=== PATIENT | female | born 1960 | race Caucasian/White ===

== ENCOUNTER 2020-06-16 09:44 | Inpatient (IN) | payer OTHER ==
[2020-06-16 09:59] VITALS: BMI 34.2
[2020-06-16] MEDS ORDERED: ACETAMINOPHEN 500 MG TABLET (FP) PO ONE (10:27)
[2020-06-16] MEDS ORDERED: ACETAMINOPHEN 325 MG TABLET (FP) ONE (10:30)
[2020-06-16 10:55] LABS: BASO % 0.3 % (0-2.0); EOS % 1.1 % (0-4.5); HEMATOCRIT 42.2 % (32.4-45.2); LYMPH % 26.1 % (8-40); MCH 28.4 pg (25.7-33.7); MCHC 33.3 g/dl (32.0-36.0); MEAN CELL VOLUME 85.3 fl (80-96); MEAN PLT VOLUME 7.5 fl (7.5-11.1); MONO % 8.2 % (3.8-10.2); NEUT % 64.3 % (42.8-82.8); PLATELET COUNT 325 K/MM3 (134-434); RBC 4.94 M/mm3 (3.60-5.2); RDW 13.5 % (11.6-15.6); WHITE BLOOD COUNT 4.9 K/mm3 (4.0-10.0)
[2020-06-16 11:02] LABS: INR 1.03 (0.83-1.09); PROTHROMBIN TIME (PATIENT) 12.6 SEC (9.7-13.0)
[2020-06-16 11:04] LABS: ACTIVATED PTT 30.9 SECONDS (25.2-36.5)
[2020-06-16 11:10] LABS: POTASSIUM 4.2 mmol/L (3.5-5.1)
[2020-06-16 11:12] LABS: ALBUMIN 3.5 g/dl (3.4-5.0); BLOOD UREA NITROGEN 21.1 mg/dL (7-18); CALCIUM 9.1 mg/dL (8.5-10.1)
[2020-06-16 11:15] LABS: CREATININE 0.7 mg/dL (0.55-1.3)
[2020-06-16 11:17] LABS: BILIRUBIN,TOTAL 0.5 mg/dL (0.2-1); TOT PROT 7.1 g/dl (6.4-8.2)
[2020-06-16 11:20] LABS: N-TERMINAL BNP 68.6 pg/ml (5-125)
[2020-06-16] MEDS ORDERED: FAMOTIDINE 10 MG TABLET PO ONE (14:32)
[2020-06-16] MEDS ORDERED: MAG HYDROX/AL HYDROX/SIMETH 30 ML UNIT-DOSE CUP PO ONE (14:32)
[2020-06-16] MEDS ORDERED: metroNIDAZOLE 250 MG TABLET PO ONE (14:36)
[2020-06-16] MEDS ORDERED: CIPROFLOXACIN 500 MG TABLET (RESTRICTED TO ID) PO ONE (14:36)
[2020-06-16] MEDS ORDERED: MAG HYDROX/AL HYDROX/SIMETH 30 ML UNIT-DOSE CUP ONE (15:09)
[2020-06-16] MEDS ORDERED: metroNIDAZOLE 250 MG TABLET ONE (15:09)
[2020-06-16] MEDS ORDERED: FAMOTIDINE 10 MG TABLET ONE (15:09)
[2020-06-16] MEDS ORDERED: ACETAMINOPHEN 325 MG TABLET (FP) PO PRN (22:13)
[2020-06-16] MEDS ORDERED: SODIUM CHLORIDE 0.45% 1,000 ML IV SCH (22:15)
[2020-06-17 06:38] LABS: BASO % 0.3 % (0-2.0); EOS % 1.9 % (0-4.5); HEMATOCRIT 39.1 % (32.4-45.2); HEMOGLOBIN 13.1 GM/dL (10.7-15.3); LYMPH % 27.6 % (8-40); MCH 28.5 pg (25.7-33.7); MCHC 33.6 g/dl (32.0-36.0); MEAN PLT VOLUME 7.4 fl (7.5-11.1); NEUT % 63.2 % (42.8-82.8); PLATELET COUNT 295 K/MM3 (134-434); RDW 13.5 % (11.6-15.6); WHITE BLOOD COUNT 5.2 K/mm3 (4.0-10.0)
[2020-06-17 07:05] LABS: BLOOD UREA NITROGEN 19.5 mg/dL (7-18); CALCIUM 8.6 mg/dL (8.5-10.1)
[2020-06-17 07:07] LABS: ALBUMIN 3.3 g/dl (3.4-5.0)
[2020-06-17 07:09] LABS: CREATININE 0.7 mg/dL (0.55-1.3)
[2020-06-17 07:11] LABS: BILIRUBIN,TOTAL 0.6 mg/dL (0.2-1); TOT PROT 6.5 g/dl (6.4-8.2)
[2020-06-17] MEDS: INSULIN SLIDING SCALE (NOVOLOG) 1 VIAL SQ SCH ×4 (07:50→22:44)
[2020-06-17] MEDS ORDERED: PT OWN MED DRAWER 7, Y5N ONE (09:25)
[2020-06-17] MEDS: LOSARTAN POTASSIUM 50 MG TABLET PO SCH (09:47)
[2020-06-17] MEDS: metoPROLOL SUCCINATE 25 MG TAB.SR.24H (FP) PO SCH (09:47)
[2020-06-17] MEDS: PANTOPRAZOLE 40 MG TABLET PO SCH (09:47)
[2020-06-17] MEDS: ASPIRIN 81 MG CHEWABLE TABLETS PO SCH (09:47)
[2020-06-17] MEDS ORDERED: metoPROLOL SUCCINATE 25 MG TAB.SR.24H (FP) PO SCH (10:00)
[2020-06-17] MEDS ORDERED: LOSARTAN 50MG/HCTZ 12.5MG 1 TAB PO SCH (10:00)
[2020-06-17] MEDS: ATORVASTATIN CA 20 MG TABLET (FP) PO SCH (22:45)
[2020-06-18] MEDS: INSULIN SLIDING SCALE (NOVOLOG) 1 VIAL SQ SCH ×4 (06:22→22:16)
[2020-06-18] MEDS: ASPIRIN 81 MG CHEWABLE TABLETS PO SCH (09:53)
[2020-06-18] MEDS: metoPROLOL SUCCINATE 25 MG TAB.SR.24H (FP) PO SCH (09:53)
[2020-06-18] MEDS: PANTOPRAZOLE 40 MG TABLET PO SCH (09:53)
[2020-06-18] MEDS: LOSARTAN POTASSIUM 50 MG TABLET PO SCH (09:53)
[2020-06-18] MEDS: SIMETHICONE 80 MG TAB.CHEW (FP) PO SCH ×2 (16:59→22:16)
[2020-06-18] MEDS: ATORVASTATIN CA 20 MG TABLET (FP) PO SCH (22:16)
[2020-06-19 03:17] VITALS: TEMP 98.1
[2020-06-19] MEDS: INSULIN SLIDING SCALE (NOVOLOG) 1 VIAL SQ SCH ×2 (06:06→13:02)
[2020-06-19] MEDS: LOSARTAN POTASSIUM 50 MG TABLET PO SCH (09:40)
[2020-06-19] MEDS: metoPROLOL SUCCINATE 25 MG TAB.SR.24H (FP) PO SCH (09:40)
[2020-06-19] MEDS: SIMETHICONE 80 MG TAB.CHEW (FP) PO SCH (09:41)
[2020-06-19] MEDS: ASPIRIN 81 MG CHEWABLE TABLETS PO SCH (09:41)
[2020-06-19] MEDS: PANTOPRAZOLE 40 MG TABLET PO SCH (09:41)
[2020-06-19 11:47] VITALS: BP 116/55; PULSE 70
== END 2020-06-19 13:30 | disposition home or self-care (01) | DRG 244 ==
LOC: JER 09:44 → JERBED 15:29 → J4W 17:01
PROVIDERS: ADMIT Internal Medicine; ATTEND Internal Medicine
DX: K57.92 Diverticulitis of intestine, part unspecified, without perforation or abscess without bleeding (principal); I67.4 Hypertensive encephalopathy; E11.42 Type 2 diabetes mellitus with diabetic polyneuropathy; I65.29 Occlusion and stenosis of unspecified carotid artery; I77.1 Stricture of artery; E78.5 Hyperlipidemia, unspecified; K21.9 Gastro-esophageal reflux disease without esophagitis; E66.9 Obesity, unspecified; Z68.34 Body mass index [BMI] 34.0-34.9, adult; I16.0 Hypertensive urgency
CPT/HCPCS: 36415; 70450-TC; 70496-TC; 70498-TC; 70551-TC; 71045-TC-FY; 71260-TC; 74177-TC; 80053; 82465; 82962; 83090; 83880; 84484; 85025; 85379; 85610; 85730; 93005; 93010; 93306-TC; 99285-25; C9803; Q9967; U0003

== ENCOUNTER 2020-07-15 11:44 | Inpatient (IN) | payer OTHER ==
[2020-07-15 12:02] VITALS: BMI 38.7
[2020-07-15] MEDS ORDERED: METOCLOPRAMIDE HCL INJECTION 10 MG/2 ML VIAL IVPUSH ONE (12:59)
[2020-07-15] MEDS ORDERED: ACETAMINOPHEN 1000 MG/100 ML VIAL (NON FORMULARY) IVPB ONE (13:03)
[2020-07-15] MEDS ORDERED: FAMOTIDINE 20 MG/50 ML IVPB 20 MG/50 ML MG IVPB ONE ×2 (13:03→13:19)
[2020-07-15] MEDS ORDERED: METOCLOPRAMIDE HCL INJECTION 10 MG/2 ML VIAL ONE (13:04)
[2020-07-15] MEDS ORDERED: ACETAMINOPHEN INJECTION 100 ML IVPB ONE (13:19)
[2020-07-15 13:38] LABS: BASO % 0.3 % (0-2.0); EOS % 0.6 % (0-4.5); HEMATOCRIT 37.1 % (32.4-45.2); HEMOGLOBIN 12.7 GM/dL (10.7-15.3); LYMPH % 18.8 % (8-40); MCH 29.3 pg (25.7-33.7); MCHC 34.2 g/dl (32.0-36.0); MEAN CELL VOLUME 85.7 fl (80-96); MEAN PLT VOLUME 8.2 fl (7.5-11.1); MONO % 4.9 % (3.8-10.2); NEUT % 75.4 % (42.8-82.8); PLATELET COUNT 247 K/MM3 (134-434); RBC 4.33 M/mm3 (3.60-5.2); RDW 13.6 % (11.6-15.6); WHITE BLOOD COUNT 4.4 K/mm3 (4.0-10.0)
[2020-07-15 14:01] LABS: POTASSIUM 4.1 mmol/L (3.5-5.1)
[2020-07-15 14:03] LABS: CALCIUM 8.9 mg/dL (8.5-10.1)
[2020-07-15 14:04] LABS: ALBUMIN 3.7 g/dl (3.4-5.0); BLOOD UREA NITROGEN 17.8 mg/dL (7-18)
[2020-07-15 14:05] LABS: MAGNESIUM 1.8 mg/dL (1.8-2.4)
[2020-07-15 14:09] LABS: BILIRUBIN,TOTAL 1.1 mg/dL (0.2-1); TOT PROT 6.8 g/dl (6.4-8.2)
[2020-07-15 14:17] LABS: CREATININE 0.7 mg/dL (0.55-1.3)
[2020-07-15] MEDS ORDERED: ASPIRIN 81 MG CHEWABLE TABLETS PO ONE (14:34)
[2020-07-15] MEDS ORDERED: ASPIRIN 81 MG CHEWABLE TABLETS ONE (14:50)
[2020-07-16 06:47] LABS: RBC 4.14 M/mm3 (3.60-5.2)
[2020-07-16 06:48] LABS: BASO % 0.5 % (0-2.0); EOS % 2.2 % (0-4.5); HEMATOCRIT 35.7 % (32.4-45.2); HEMOGLOBIN 12.2 GM/dL (10.7-15.3); MCH 29.5 pg (25.7-33.7); MCHC 34.2 g/dl (32.0-36.0); MEAN CELL VOLUME 86.2 fl (80-96); MEAN PLT VOLUME 8.5 fl (7.5-11.1); MONO % 8.2 % (3.8-10.2); NEUT % 53.1 % (42.8-82.8); PLATELET COUNT 226 K/MM3 (134-434); RDW 13.6 % (11.6-15.6)
[2020-07-16] MEDS ORDERED: metFORMIN HCL 500 MG TABLET (FP) ONE ×2 (07:10→16:36)
[2020-07-16 07:11] LABS: POTASSIUM 3.8 mmol/L (3.5-5.1)
[2020-07-16] MEDS: metFORMIN HCL 500 MG TABLET (FP) PO SCH ×2 (07:18→16:44)
[2020-07-16 07:19] LABS: ALBUMIN 3.3 g/dl (3.4-5.0); CALCIUM 8.4 mg/dL (8.5-10.1)
[2020-07-16 07:20] LABS: BLOOD UREA NITROGEN 14.4 mg/dL (7-18)
[2020-07-16 07:24] LABS: BILIRUBIN,TOTAL 0.6 mg/dL (0.2-1)
[2020-07-16 07:25] LABS: CREATININE 0.6 mg/dL (0.55-1.3); TOT PROT 6.3 g/dl (6.4-8.2)
[2020-07-16] MEDS ORDERED: ENOXAPARIN NA (PORCINE) 40 MG/0.4 ML DISP.SYRIN SQ ONE (10:00)
[2020-07-16] MEDS ORDERED: metFORMIN HCL 500 MG TABLET (FP) PO SCH (10:00)
[2020-07-16] MEDS: ENOXAPARIN NA (PORCINE) 40 MG/0.4 ML DISP.SYRIN SQ SCH (10:04)
[2020-07-17 07:11] LABS: CHOLESTEROL 117 mg/dL (50-200); TRIGLYCERIDES 135 mg/dL (0-150)
[2020-07-17 07:12] LABS: LDL CHOLESTEROL (ONLY SJRH) 65 mg/dL (5-100)
[2020-07-17 07:14] LABS: HDL CHOLESTEROL 39 mg/dL (40-60)
[2020-07-17] MEDS ORDERED: metFORMIN HCL 500 MG TABLET (FP) ONE (07:56)
[2020-07-17] MEDS: metFORMIN HCL 500 MG TABLET (FP) PO SCH ×2 (07:58→17:59)
[2020-07-17] MEDS ORDERED: ENOXAPARIN NA (PORCINE) 40 MG/0.4 ML DISP.SYRIN SQ ONE (10:41)
[2020-07-17] MEDS: ENOXAPARIN NA (PORCINE) 40 MG/0.4 ML DISP.SYRIN SQ SCH (10:45)
[2020-07-17] MEDS ORDERED: ONDANSETRON 4 MG/2 ML VIAL IVPUSH ONE (17:45)
[2020-07-17] MEDS ORDERED: PANTOPRAZOLE 40 MG TABLET PO ONE (20:07)
[2020-07-18] MEDS: metFORMIN HCL 500 MG TABLET (FP) PO SCH (06:18)
[2020-07-18] MEDS: ENOXAPARIN NA (PORCINE) 40 MG/0.4 ML DISP.SYRIN SQ SCH (12:02)
[2020-07-18 15:16] VITALS: BP 123/48; PULSE 68; TEMP 98
== END 2020-07-18 16:16 | disposition home or self-care (01) | DRG 46 ==
LOC: JER 11:44 → JERBED 16:24 → J4W 07-17 16:10
PROVIDERS: ADMIT Internal Medicine; ATTEND Internal Medicine
DX: I65.02 Occlusion and stenosis of left vertebral artery (principal); I77.1 Stricture of artery; G43.909 Migraine, unspecified, not intractable, without status migrainosus; I10 Essential (primary) hypertension; E78.5 Hyperlipidemia, unspecified; E11.9 Type 2 diabetes mellitus without complications; K21.9 Gastro-esophageal reflux disease without esophagitis; R77.8 Other specified abnormalities of plasma proteins; R42 Dizziness and giddiness; E66.9 Obesity, unspecified; Z68.38 Body mass index [BMI] 38.0-38.9, adult; E11.40 Type 2 diabetes mellitus with diabetic neuropathy, unspecified
CPT/HCPCS: 36415; 71045-TC-FY; 78452-TC; 80053; 80061; 82550; 82962; 83036; 83690; 83721; 83735; 84443; 84484; 85025; 93005; 93010; 93017; 93880-TC; 99285-25; A9502; C9803; J0131; U0003

== ENCOUNTER 2020-09-13 10:58 | Emergency (ER) | payer BC ==
[2020-09-13 11:24] VITALS: BMI 30.4
[2020-09-13] MEDS ORDERED: ONDANSETRON 4 MG/2 ML VIAL IVPUSH ONE (12:19)
[2020-09-13] MEDS ORDERED: ONDANSETRON 4 MG/2 ML VIAL ONE (12:20)
[2020-09-13] MEDS ORDERED: SODIUM CHLORIDE 0.9% 500 ML INFUS.BAG IV ONE (12:24)
[2020-09-13] MEDS ORDERED: FAMOTIDINE 20 MG TABLET PO ONE (12:38)
[2020-09-13 12:39] LABS: BASO % 0.6 % (0-2.0); EOS % 0.4 % (0-4.5); HEMATOCRIT 41.1 % (32.4-45.2); LYMPH % 17.2 % (8-40); MCH 29.2 pg (25.7-33.7); MCHC 34.2 g/dl (32.0-36.0); MEAN CELL VOLUME 85.4 fl (80-96); MEAN PLT VOLUME 8.1 fl (7.5-11.1); MONO % 4.8 % (3.8-10.2); PLATELET COUNT 295 K/MM3 (134-434); RBC 4.81 M/mm3 (3.60-5.2); RDW 14.8 % (11.6-15.6); WHITE BLOOD COUNT 5.3 K/mm3 (4.0-10.0)
[2020-09-13 12:40] LABS: EPI CELLS 4 /uL (0-25.1); HYALINE CASTS 0 /uL (0-3.1); PH,URINE 7.5 (5.0-8.0); URINE APPEARANCE CLEAR; URINE BACTERIA 90 /uL (0-1359); URINE BILIRUBIN NEGATIVE (NEGATIVE); URINE COLOR YELLOW; URINE GLUCOSE (UA) NEGATIVE (NEGATIVE); URINE KETONE NEGATIVE (NEGATIVE); URINE LEUK ESTERASE NEGATIVE (NEGATIVE); URINE NITRITE NEGATIVE (NEGATIVE); URINE PROTEIN NEGATIVE (NEGATIVE); URINE RBC 23 /uL (0-23.9); URINE UROBILINOGEN 0.2 mg/dL (0.2-1.0); URINE WBC 4 /uL (0-25.8)
[2020-09-13] MEDS ORDERED: FAMOTIDINE 20 MG TABLET ONE (12:51)
[2020-09-13 13:02] LABS: POTASSIUM 4.1 mmol/L (3.5-5.1)
[2020-09-13 13:05] LABS: ALBUMIN 4.1 g/dl (3.4-5.0); BLOOD UREA NITROGEN 10.8 mg/dL (7-18); CALCIUM 9.3 mg/dL (8.5-10.1)
[2020-09-13 13:08] LABS: CREATININE 0.8 mg/dL (0.55-1.3); PHOSPHOROUS 3.3 mg/dL (2.5-4.9)
[2020-09-13 13:10] LABS: BILIRUBIN,TOTAL 0.9 mg/dL (0.2-1); TOT PROT 7.7 g/dl (6.4-8.2)
[2020-09-13 14:28] VITALS: BP 150/75; PULSE 67; TEMP 98.8
== END 2020-09-13 16:45 | disposition home or self-care (01) ==
LOC: JER 10:58
PROC: 3E033NZ Introduction of Analgesics, Hypnotics, Sedatives into Peripheral Vein, Percutaneous Approach (ICD-10-PCS; principal; 2020-09-13)
DX: R10.13 Epigastric pain (principal); R11.2 Nausea with vomiting, unspecified
CPT/HCPCS: 36415; 71046-TC-FY; 74177-TC; 80053; 81003; 82550; 83605; 83690; 83735; 84100; 84484; 85025; 87086; 93005; 93010; 99285-25

== ENCOUNTER 2020-11-17 09:54 | Emergency (ER) | payer BC, OTHER ==
[2020-11-17 10:05] VITALS: BP 149/95; PULSE 84; TEMP 98.8; BMI 26.6
[2020-11-17] MEDS ORDERED: ACETAMINOPHEN 1000 MG/100 ML VIAL (NON FORMULARY) IVPB ONE (10:50)
[2020-11-17 11:19] LABS: BASO % 0.5 % (0-2.0); EOS % 2.7 % (0-4.5); HEMATOCRIT 36.4 % (32.4-45.2); HEMOGLOBIN 12.4 GM/dL (10.7-15.3); LYMPH % 33.1 % (8-40); MCH 29.7 pg (25.7-33.7); MEAN CELL VOLUME 87.2 fl (80-96); MEAN PLT VOLUME 7.6 fl (7.5-11.1); MONO % 7.6 % (3.8-10.2); NEUT % 56.1 % (42.8-82.8); PLATELET COUNT 299 K/MM3 (134-434); RBC 4.17 M/mm3 (3.60-5.2); RDW 14.5 % (11.6-15.6); WHITE BLOOD COUNT 4.7 K/mm3 (4.0-10.0)
[2020-11-17 11:51] LABS: CALCIUM 8.7 mg/dL (8.5-10.1)
[2020-11-17 11:52] LABS: ALBUMIN 3.4 g/dl (3.4-5.0); BLOOD UREA NITROGEN 17.6 mg/dL (7-18)
[2020-11-17 11:55] LABS: CREATININE 0.6 mg/dL (0.55-1.3)
[2020-11-17 11:57] LABS: BILIRUBIN,TOTAL 0.5 mg/dL (0.2-1); TOT PROT 6.8 g/dl (6.4-8.2)
[2020-11-17] MEDS ORDERED: AMOX TR/POT CLAV 875MG/125MG TABLETS (FP) PO ONE (15:36)
[2020-11-17] MEDS ORDERED: DEXAMETHASONE LIQUID 0.5 MG/5 ML PO ONE (15:36)
[2020-11-17] MEDS ORDERED: AMOX TR/POT CLAV 875MG/125MG TABLETS (FP) ONE (15:41)
[2020-11-17] MEDS ORDERED: DEXAMETHASONE SOD PHOSPHATE 10 MG/1 ML VIAL ONE (15:41)
== END 2020-11-17 15:50 | disposition home or self-care (01) ==
LOC: JER 09:54
PROC: 3E033NZ Introduction of Analgesics, Hypnotics, Sedatives into Peripheral Vein, Percutaneous Approach (ICD-10-PCS; principal; 2020-11-17)
DX: R07.0 Pain in throat (principal)
CPT/HCPCS: 36415; 70491-TC; 80053; 85025; 87880; 99285-25; C9803; Q9967; U0003; U0005

== ENCOUNTER 2021-09-06 09:05 | Emergency (ER) | payer BC ==
[2021-09-06 09:26] VITALS: TEMP 97.2; BMI 28.1
[2021-09-06] MEDS ORDERED: SODIUM CHLORIDE 0.9% 500 ML INFUS.BAG IV ONE (10:32)
[2021-09-06] MEDS ORDERED: KETOROLAC TROMETHAMINE 30 MG/1 ML VIAL IVPB ONE (10:32)
[2021-09-06] MEDS ORDERED: METOCLOPRAMIDE HCL INJECTION 10 MG/2 ML VIAL IVPUSH ONE (10:32)
[2021-09-06] MEDS ORDERED: FAMOTIDINE 20 MG/50 ML IVPB 20 MG/50 ML MG IVPB ONE ×2 (10:33→10:40)
[2021-09-06] MEDS ORDERED: METOCLOPRAMIDE HCL INJECTION 10 MG/2 ML VIAL ONE (10:39)
[2021-09-06] MEDS ORDERED: KETOROLAC TROMETHAMINE 30 MG/1 ML VIAL ONE (10:40)
[2021-09-06 11:13] LABS: BASO % 0.4 % (0-2.0); EOS % 0.3 % (0-4.5); HEMATOCRIT 42.4 % (32.4-45.2); HEMOGLOBIN 14.1 GM/dL (10.7-15.3); LYMPH % 26.7 % (8-40); MCH 28.8 pg (25.7-33.7); MCHC 33.3 g/dl (32.0-36.0); MEAN CELL VOLUME 86.6 fl (80-96); MEAN PLT VOLUME 7.5 fl (7.5-11.1); MONO % 4.4 % (3.8-10.2); NEUT % 68.2 % (42.8-82.8); PLATELET COUNT 263 10^3/uL (134-434); RBC 4.89 M/mm3 (3.60-5.2); RDW 13.8 % (11.6-15.6); WHITE BLOOD COUNT 4.3 K/mm3 (4.0-10.0)
[2021-09-06 11:15] LABS: EPI CELLS 8 /uL (0-25.1); HYALINE CASTS 0 /uL (0-3.1); URINE APPEARANCE CLEAR; URINE BACTERIA 5 /uL (0-1359); URINE BILIRUBIN NEGATIVE (NEGATIVE); URINE COLOR YELLOW; URINE GLUCOSE (UA) NEGATIVE (NEGATIVE); URINE KETONE NEGATIVE (NEGATIVE); URINE LEUK ESTERASE 1+ (NEGATIVE); URINE NITRITE NEGATIVE (NEGATIVE); URINE PROTEIN NEGATIVE (NEGATIVE); URINE RBC 13 /uL (0-23.9); URINE WBC 15 /uL (0-25.8)
[2021-09-06 11:39] LABS: CALCIUM 9.3 mg/dL (8.5-10.1)
[2021-09-06 11:41] LABS: ALBUMIN 3.9 g/dl (3.4-5.0); BLOOD UREA NITROGEN 12.5 mg/dL (7-18)
[2021-09-06 11:43] LABS: CREATININE 0.7 mg/dL (0.55-1.3)
[2021-09-06 11:44] LABS: BILIRUBIN,TOTAL 0.5 mg/dL (0.2-1); TOT PROT 7.4 g/dl (6.4-8.2)
[2021-09-06 12:57] VITALS: BP 146/74; PULSE 64
== END 2021-09-06 13:17 | disposition home or self-care (01) ==
LOC: JER 09:05
PROC: 3E033GC Introduction of Other Therapeutic Substance into Peripheral Vein, Percutaneous Approach (ICD-10-PCS; principal; 2021-09-06)
PROC: 3E0333Z Introduction of Anti-inflammatory into Peripheral Vein, Percutaneous Approach (ICD-10-PCS; 2021-09-06)
PROC: 3E033GC Introduction of Other Therapeutic Substance into Peripheral Vein, Percutaneous Approach (ICD-10-PCS; 2021-09-06)
DX: R51.9 Headache, unspecified (principal)
CPT/HCPCS: 36415; 70450-TC; 80053; 81003; 83690; 85025; 87086; 93005; 93010; 99284-25

== ENCOUNTER 2023-03-29 13:46 | Emergency (ER) | payer BC ==
[2023-03-29 14:09] VITALS: TEMP 99.2; BMI 30.2
[2023-03-29] MEDS ORDERED: ACETAMINOPHEN 500 MG TABLET (FP) PO ONE (16:11)
[2023-03-29] MEDS ORDERED: ACETAMINOPHEN 325 MG TABLET (FP) ONE (16:27)
[2023-03-29] MEDS ORDERED: SODIUM CHLORIDE 0.9% 500 ML INFUS.BAG IV ONE (16:53)
[2023-03-29] MEDS ORDERED: MAG HYDROX/AL HYDROX/SIMETH -MYLANTA- ORAL SUSPENSION PO ONE (16:54)
[2023-03-29] MEDS ORDERED: FAMOTIDINE 20 MG TABLET PO ONE (16:54)
[2023-03-29] MEDS ORDERED: FAMOTIDINE 20 MG TABLET ONE (18:06)
[2023-03-29] MEDS ORDERED: MAG HYDROX/AL HYDROX/SIMETH 30 ML UNIT-DOSE CUP ONE (18:06)
[2023-03-29 19:05] LABS: URINE APPEARANCE CLEAR; URINE BILIRUBIN NEGATIVE (NEGATIVE); URINE COLOR YELLOW; URINE GLUCOSE (UA) NEGATIVE (NEGATIVE); URINE KETONE NEGATIVE (NEGATIVE); URINE LEUK ESTERASE NEGATIVE (NEGATIVE); URINE NITRITE NEGATIVE (NEGATIVE); URINE PROTEIN NEGATIVE (NEGATIVE); URINE UROBILINOGEN 0.2 mg/dL (0.2-1.0)
[2023-03-29 19:07] LABS: BASO % 0.5 % (0-2.0); HEMATOCRIT 40.8 % (32.4-45.2); HEMOGLOBIN 14.2 GM/dL (10.7-15.3); LYMPH % 39.2 % (8-40); MCH 29.3 pg (25.7-33.7); MCHC 34.9 g/dl (32.0-36.0); MEAN CELL VOLUME 84.1 fl (80-96); MEAN PLT VOLUME 7.3 fl (7.5-11.1); MONO % 5.7 % (3.8-10.2); NEUT % 51.6 % (42.8-82.8); PLATELET COUNT 289 10^3/uL (134-434); RBC 4.85 M/mm3 (3.60-5.2); RDW 13.6 % (11.6-15.6); WHITE BLOOD COUNT 4.2 K/mm3 (4.0-10.0)
[2023-03-29 19:08] LABS: INR 1.02 (0.83-1.09); PROTHROMBIN TIME (PATIENT) 11.8 SEC (9.7-13.0)
[2023-03-29 19:10] LABS: ACTIVATED PTT 30.8 SECONDS (25.2-36.5)
[2023-03-29 19:42] LABS: POTASSIUM 3.8 mmol/L (3.5-5.1)
[2023-03-29 19:46] LABS: CALCIUM 8.7 mg/dL (8.5-10.1)
[2023-03-29 19:47] LABS: ALBUMIN 3.7 g/dl (3.4-5.0); BLOOD UREA NITROGEN 14.8 mg/dL (7-18); MAGNESIUM 2.2 mg/dL (1.8-2.4)
[2023-03-29 19:50] LABS: CREATININE 0.6 mg/dL (0.55-1.3); PHOSPHOROUS 3.6 mg/dL (2.5-4.9)
[2023-03-29 19:52] LABS: BILIRUBIN,TOTAL 0.8 mg/dL (0.2-1); TOT PROT 6.9 g/dl (6.4-8.2)
[2023-03-29] MEDS ORDERED: METOCLOPRAMIDE HCL INJECTION 10 MG/2 ML VIAL IVPUSH ONE (21:01)
[2023-03-29] MEDS ORDERED: METOCLOPRAMIDE HCL INJECTION 10 MG/2 ML VIAL ONE (21:03)
[2023-03-29 23:28] VITALS: BP 145/82; PULSE 78; RESP 18
== END 2023-03-29 23:28 | disposition home or self-care (01) ==
LOC: JER 13:46
PROC: 3E033GC Introduction of Other Therapeutic Substance into Peripheral Vein, Percutaneous Approach (ICD-10-PCS; principal; 2023-03-29)
DX: R51.9 Headache, unspecified (principal); J02.9 Acute pharyngitis, unspecified; R10.13 Epigastric pain; R11.0 Nausea; Z20.822 Contact with and (suspected) exposure to COVID-19
CPT/HCPCS: 0241U-QW; 36415; 74177-TC; 80053; 81003; 83690; 83735; 84100; 84484; 85025; 85610; 85730; 87086; 87186; 93005; 93010; 99285-25; Q9967

== ENCOUNTER 2023-07-11 18:17 | Emergency (ER) | payer BC, OTHER ==
[2023-07-11 18:31] VITALS: BMI 27.8
[2023-07-11] MEDS ORDERED: KETOROLAC TROMETHAMINE 15 MG/ML VIAL IVPUSH ONE (19:25)
[2023-07-11] MEDS ORDERED: KETOROLAC TROMETHAMINE 15 MG/ML VIAL ONE (19:43)
[2023-07-11 19:54] LABS: BASO % 0.3 % (0-2.0); EOS % 0.2 % (0-4.5); HEMATOCRIT 42.7 % (32.4-45.2); HEMOGLOBIN 14.4 GM/dL (10.7-15.3); LYMPH % 10.3 % (8-40); MCH 29.2 pg (25.7-33.7); MCHC 33.7 g/dl (32.0-36.0); MEAN CELL VOLUME 86.6 fl (80-96); MONO % 4.2 % (3.8-10.2); PLATELET COUNT 308 10^3/uL (134-434); RBC 4.94 M/mm3 (3.60-5.2); RDW 14.6 % (11.6-15.6); WHITE BLOOD COUNT 9.7 K/mm3 (4.0-10.0)
[2023-07-11 20:03] LABS: INR 1.03 (0.83-1.09); PROTHROMBIN TIME (PATIENT) 11.9 SEC (9.7-13.0)
[2023-07-11 20:06] LABS: ACTIVATED PTT 27.5 SECONDS (25.2-36.5)
[2023-07-11 20:11] VITALS: RESP 19
[2023-07-11 20:35] LABS: POTASSIUM 3.7 mmol/L (3.5-5.1)
[2023-07-11 20:37] LABS: CALCIUM 9.6 mg/dL (8.5-10.1)
[2023-07-11 20:38] LABS: ALBUMIN 3.8 g/dl (3.4-5.0); BLOOD UREA NITROGEN 15.3 mg/dL (7-18)
[2023-07-11 20:41] LABS: CREATININE 0.7 mg/dL (0.55-1.3)
[2023-07-11 20:42] LABS: BILIRUBIN,TOTAL 0.6 mg/dL (0.2-1)
[2023-07-11 20:43] LABS: TOT PROT 7.5 g/dl (6.4-8.2)
[2023-07-11 21:20] VITALS: BP 134/80; PULSE 73; TEMP 98.4
== END 2023-07-11 21:37 | disposition home or self-care (01) ==
LOC: JERFT 18:17
PROC: 0RSJXZZ Reposition Right Shoulder Joint, External Approach (ICD-10-PCS; principal; 2023-07-11)
PROC: 3E0333Z Introduction of Anti-inflammatory into Peripheral Vein, Percutaneous Approach (ICD-10-PCS; 2023-07-11)
DX: S42.401A Unspecified fracture of lower end of right humerus, initial encounter for closed fracture (principal); W01.0XXA Fall on same level from slipping, tripping and stumbling without subsequent striking against object, initial encounter; Y99.0 Civilian activity done for income or pay
CPT/HCPCS: 36415; 73070-TC-RT-FY; 80053; 85025; 85610; 85730; 99284-25

== ENCOUNTER 2023-08-12 09:57 | Observation (INO) | payer OTHER ==
[2023-08-12 10:06] VITALS: BMI 32.0
[2023-08-12] MEDS ORDERED: ACETAMINOPHEN INJECTION 100 ML IVPB ONE (10:55)
[2023-08-12] MEDS ORDERED: MAG HYDROX/AL HYDROX/SIMETH 30 ML UNIT-DOSE CUP ONE (10:55)
[2023-08-12] MEDS ORDERED: FAMOTIDINE 10 MG/ML VIAL IVPB ONE (10:56)
[2023-08-12] MEDS: ACETAMINOPHEN 1000 MG/100 ML BAG IVPB ONE (11:04)
[2023-08-12] MEDS: MAG HYDROX/AL HYDROX/SIMETH 30 ML UNIT-DOSE CUP PO ONE (11:04)
[2023-08-12] MEDS: FAMOTIDINE 20 MG/50 ML IVPB 20 MG/50 ML MG IVPB ONE (11:05)
[2023-08-12 11:08] LABS: BASO % 0.3 % (0-2.0); HEMATOCRIT 41.6 % (32.4-45.2); HEMOGLOBIN 13.9 GM/dL (10.7-15.3); LYMPH % 18.3 % (8-40); MCH 28.9 pg (25.7-33.7); MCHC 33.4 g/dl (32.0-36.0); MEAN CELL VOLUME 86.4 fl (80-96); MEAN PLT VOLUME 7.2 fl (7.5-11.1); MONO % 4.5 % (3.8-10.2); NEUT % 75.9 % (42.8-82.8); PLATELET COUNT 299 10^3/uL (134-434); RBC 4.81 M/mm3 (3.60-5.2); RDW 13.6 % (11.6-15.6); WHITE BLOOD COUNT 5.8 K/mm3 (4.0-10.0)
[2023-08-12 11:14] LABS: INR 1.09 (0.83-1.09); PROTHROMBIN TIME (PATIENT) 12.6 SEC (9.7-13.0)
[2023-08-12 11:17] LABS: ACTIVATED PTT 29.9 SECONDS (25.2-36.5)
[2023-08-12 11:22] LABS: POTASSIUM 4.3 mmol/L (3.5-5.1)
[2023-08-12 11:24] LABS: CALCIUM 9.2 mg/dL (8.5-10.1)
[2023-08-12 11:25] LABS: ALBUMIN 3.6 g/dl (3.4-5.0); BLOOD UREA NITROGEN 18.1 mg/dL (7-18)
[2023-08-12 11:28] LABS: CREATININE 0.6 mg/dL (0.55-1.3)
[2023-08-12 11:30] LABS: TOT PROT 7.4 g/dl (6.4-8.2)
[2023-08-12 11:31] LABS: BILIRUBIN,TOTAL 0.6 mg/dL (0.2-1)
[2023-08-12] MEDS ORDERED: ASPIRIN 81 MG CHEWABLE TABLETS ONE (12:40)
[2023-08-12] MEDS: ASPIRIN 81 MG CHEWABLE TABLETS PO ONE (12:44)
[2023-08-12] MEDS ORDERED: MAG HYDROX/AL HYDROX/SIMETH 30 ML UNIT-DOSE CUP PO PRN (16:35)
[2023-08-12] MEDS ORDERED: LIDOCAINE VISCOUS 2% ORAL/TOP 15 ML UNIT-DOSE CUP MM PRN (16:36)
[2023-08-12 20:06] VITALS: BP 126/77; PULSE 67; RESP 18; TEMP 97.8
[2023-08-12] MEDS: HEPARIN NA (PORCINE) 5,000 UNITS/ML 1ML VIAL SQ SCH (21:29)
[2023-08-12] MEDS: DOXYCYCLINE INJECTION 100 MG in DEXTROSE 5%-WATER 100 ML IVPB SCH (21:29)
[2023-08-13] MEDS ORDERED: METOPROLOL TARTRATE 25 MG TABLET (FP) PO SCH (10:00)
[2023-08-13] MEDS ORDERED: PANTOPRAZOLE SOD 40 MG SUSPENSION PACKET PO SCH (10:00)
[2023-08-13] MEDS ORDERED: metoPROLOL SUCCINATE 25 MG TAB.SR.24H (FP) PO SCH (10:00)
== END 2023-08-13 01:30 | disposition short-term general hospital (02) ==
LOC: JER 09:57 → INTOOBSV 13:17 → UNDOADMOB 13:17 → JERBED 13:17 → J4S 16:43 → JERBED 16:43
PROVIDERS: ADMIT Internal Medicine; ATTEND Internal Medicine
PROC: 3E033NZ Introduction of Analgesics, Hypnotics, Sedatives into Peripheral Vein, Percutaneous Approach (ICD-10-PCS; principal; 2023-08-12)
PROC: 3E03329 Introduction of Other Anti-infective into Peripheral Vein, Percutaneous Approach (ICD-10-PCS; 2023-08-12)
PROC: 3E033GC Introduction of Other Therapeutic Substance into Peripheral Vein, Percutaneous Approach (ICD-10-PCS; 2023-08-12)
PROC: 3E023GC Introduction of Other Therapeutic Substance into Muscle, Percutaneous Approach (ICD-10-PCS; 2023-08-12)
DX: R07.89 Other chest pain (principal); L02.91 Cutaneous abscess, unspecified; I10 Essential (primary) hypertension; E11.9 Type 2 diabetes mellitus without complications; K21.9 Gastro-esophageal reflux disease without esophagitis; R77.8 Other specified abnormalities of plasma proteins; N61.1 Abscess of the breast and nipple; Z91.010 Allergy to peanuts; Z91.011 Allergy to milk products; Z91.018 Allergy to other foods
CPT/HCPCS: 36415; 71045-TC-FY; 80053; 84484; 85025; 85610; 85730; 86850; 86900; 86901; 87635; 96365; 96367; 96372; 96375; 99285-25; G0378; J0131; J1644

== ENCOUNTER 2023-11-16 10:21 | Emergency (ER) | payer OTHER ==
[2023-11-16 10:32] VITALS: BMI 31.0
[2023-11-16 13:10] LABS: BASO % 0.5 % (0-2.0); EOS % 2.3 % (0-4.5); HEMOGLOBIN 13.2 GM/dL (10.7-15.3); LYMPH % 34.2 % (8-40); MCH 28.8 pg (25.7-33.7); MCHC 33.9 g/dl (32.0-36.0); MEAN CELL VOLUME 85.1 fl (80-96); MEAN PLT VOLUME 7.4 fl (7.5-11.1); MONO % 7.4 % (3.8-10.2); NEUT % 55.6 % (42.8-82.8); PLATELET COUNT 299 10^3/uL (134-434); RBC 4.59 M/mm3 (3.60-5.2); WHITE BLOOD COUNT 4.4 K/mm3 (4.0-10.0)
[2023-11-16 13:33] LABS: POTASSIUM 3.9 mmol/L (3.5-5.1)
[2023-11-16 13:35] LABS: CALCIUM 8.8 mg/dL (8.5-10.1)
[2023-11-16 13:36] LABS: ALBUMIN 3.5 g/dl (3.4-5.0); BLOOD UREA NITROGEN 14.6 mg/dL (7-18)
[2023-11-16 13:39] LABS: CREATININE 0.6 mg/dL (0.55-1.3)
[2023-11-16 13:40] LABS: BILIRUBIN,TOTAL 0.6 mg/dL (0.2-1)
[2023-11-16 14:54] VITALS: BP 149/61; PULSE 62; RESP 20; TEMP 98.1
== END 2023-11-16 17:17 | disposition home or self-care (01) ==
LOC: JER 10:21
DX: R55 Syncope and collapse (principal); R11.0 Nausea; R00.2 Palpitations; H53.8 Other visual disturbances
CPT/HCPCS: 36415; 71045-TC-FY; 80053; 84484; 85025; 93005; 93010; 93880-TC; 99285-25

== ENCOUNTER 2023-12-02 09:27 | Inpatient (IN) | payer OTHER ==
[2023-12-02 09:35] VITALS: BMI 30.2
[2023-12-02] MEDS ORDERED: MAG HYDROX/AL HYDROX/SIMETH 30 ML UNIT-DOSE CUP ONE (10:37)
[2023-12-02] MEDS ORDERED: ACETAMINOPHEN INJECTION 100 ML IVPB ONE ×2 (10:37→11:31)
[2023-12-02] MEDS: ACETAMINOPHEN 1000 MG/100 ML BAG IVPB ONE (11:05)
[2023-12-02] MEDS: LACTATED RINGERS SOLUTION 1000 ML INFUS.BAG IV ONE (11:05)
[2023-12-02] MEDS: MAG HYDROX/AL HYDROX/SIMETH 30 ML UNIT-DOSE CUP PO ONE (11:05)
[2023-12-02 11:11] LABS: BASO % 0.4 % (0-2.0); EOS % 1.5 % (0-4.5); HEMATOCRIT 36.8 % (32.4-45.2); HEMOGLOBIN 12.9 GM/dL (10.7-15.3); LYMPH % 25.9 % (8-40); MCH 29.4 pg (25.7-33.7); NEUT % 66.2 % (42.8-82.8); PLATELET COUNT 294 10^3/uL (134-434); RBC 4.38 M/mm3 (3.60-5.2); RDW 14.1 % (11.6-15.6); WHITE BLOOD COUNT 4.8 K/mm3 (4.0-10.0)
[2023-12-02 11:18] LABS: INR 0.97 (0.83-1.09)
[2023-12-02 11:20] LABS: ACTIVATED PTT 22.9 SECONDS (25.2-36.5)
[2023-12-02 11:35] LABS: MAGNESIUM 2.1 mg/dL (1.8-2.4)
[2023-12-02] MEDS: FAMOTIDINE 20 MG/50 ML IVPB 20 MG/50 ML MG IVPB ONE (11:43)
[2023-12-02] MEDS ORDERED: FAMOTIDINE 20 MG/50 ML IVPB 20 MG/50 ML MG IVPB ONE (11:49)
[2023-12-02 12:30] LABS: POTASSIUM 3.7 mmol/L (3.5-5.1)
[2023-12-02 12:32] LABS: ALBUMIN 3.4 g/dl (3.4-5.0); BLOOD UREA NITROGEN 14.9 mg/dL (7-18); CALCIUM 8.6 mg/dL (8.5-10.1)
[2023-12-02 12:35] LABS: CREATININE 0.7 mg/dL (0.55-1.3)
[2023-12-02 12:37] LABS: BILIRUBIN,TOTAL 0.6 mg/dL (0.2-1); TOT PROT 6.7 g/dl (6.4-8.2)
[2023-12-02] MEDS ORDERED: PANTOPRAZOLE 40 MG TABLET PO ONE (15:39)
[2023-12-02] MEDS ORDERED: HEPARIN NA (PORCINE) 5,000 UNITS/ML 1ML VIAL ONE (15:40)
[2023-12-02] MEDS: HEPARIN NA (PORCINE) 5,000 UNITS/ML 1ML VIAL SQ SCH (15:46)
[2023-12-02] MEDS: PANTOPRAZOLE 40 MG TABLET PO SCH ×2 (15:46→21:20)
[2023-12-02] MEDS: SUCRALFATE 1 GM TABLET (FP) PO SCH (21:19)
[2023-12-02] MEDS: ATORVASTATIN CA 80 MG TABLET (FP) PO SCH (21:19)
[2023-12-03] MEDS ORDERED: METOPROLOL TARTRATE 50 MG TABLET (FP) PO SCH (10:00)
[2023-12-03] MEDS: LOSARTAN 50MG/HCTZ 12.5MG 1 TAB PO SCH (10:20)
[2023-12-04 03:37] VITALS: TEMP 97.7
[2023-12-04 06:24] VITALS: BP 146/53; PULSE 64; RESP 20
[2023-12-04] MEDS: MAG HYDROX/AL HYDROX/SIMETH 30 ML UNIT-DOSE CUP PO PRN (10:41)
== END 2023-12-04 14:07 | disposition home or self-care (01) | DRG 392 ==
LOC: JER 09:27 → JERBED 13:55 → OBSVTOIN 14:32 → J4W 16:01
PROVIDERS: ADMIT Internal Medicine; ATTEND Internal Medicine
DX: K21.9 Gastro-esophageal reflux disease without esophagitis (principal); I10 Essential (primary) hypertension; E78.5 Hyperlipidemia, unspecified; E11.9 Type 2 diabetes mellitus without complications; R07.89 Other chest pain; R10.13 Epigastric pain; I25.10 Atherosclerotic heart disease of native coronary artery without angina pectoris
CPT/HCPCS: 36415; 71045-TC-FY; 80053; 82010; 82962; 83690; 83735; 84484; 85025; 85610; 85730; 93005; 93010; 99285-25; G0378; J0131; J1644

== ENCOUNTER 2024-01-02 09:38 | Emergency (ER) | payer OTHER ==
[2024-01-02 09:45] VITALS: RESP 18; BMI 30.9
[2024-01-02] MEDS ORDERED: ACETAMINOPHEN INJECTION 100 ML IVPB ONE (11:53)
[2024-01-02] MEDS: ACETAMINOPHEN 1000 MG/100 ML BAG IVPB ONE (11:57)
[2024-01-02 12:08] LABS: INR 0.97 (0.83-1.09)
[2024-01-02 12:11] LABS: BASO % 0.5 % (0-2.0); EOS % 1.2 % (0-4.5); HEMATOCRIT 37.7 % (32.4-45.2); LYMPH % 22.5 % (8-40); MCHC 34.6 g/dl (32.0-36.0); MONO % 5.8 % (3.8-10.2); PLATELET COUNT 298 10^3/uL (134-434); RBC 4.49 M/mm3 (3.60-5.2); RDW 14.2 % (11.6-15.6); WHITE BLOOD COUNT 5.2 K/mm3 (4.0-10.0)
[2024-01-02 12:16] LABS: POTASSIUM 3.5 mmol/L (3.5-5.1)
[2024-01-02 12:18] LABS: CALCIUM 9.2 mg/dL (8.5-10.1)
[2024-01-02 12:19] LABS: ALBUMIN 3.7 g/dl (3.4-5.0); BLOOD UREA NITROGEN 19.6 mg/dL (7-18)
[2024-01-02 12:22] LABS: CREATININE 0.8 mg/dL (0.55-1.3)
[2024-01-02] MEDS ORDERED: MAG HYDROX/AL HYDROX/SIMETH 30 ML UNIT-DOSE CUP ONE (12:22)
[2024-01-02 12:23] LABS: TOT PROT 6.7 g/dl (6.4-8.2)
[2024-01-02 12:24] LABS: BILIRUBIN,TOTAL 0.7 mg/dL (0.2-1)
[2024-01-02] MEDS: MAG HYDROX/AL HYDROX/SIMETH 30 ML UNIT-DOSE CUP PO ONE (13:32)
[2024-01-02] MEDS ORDERED: ASPIRIN 325 MG ENTERIC COATED TABLET (FP) ONE (14:13)
[2024-01-02] MEDS: ASPIRIN 325 MG TABLET PO ONE (14:17)
[2024-01-02 17:04] VITALS: BP 135/59; PULSE 56; TEMP 98.6
== END 2024-01-02 17:47 | disposition home or self-care (01) ==
LOC: JER 09:38
PROC: 3E033NZ Introduction of Analgesics, Hypnotics, Sedatives into Peripheral Vein, Percutaneous Approach (ICD-10-PCS; principal; 2024-01-02)
DX: M79.602 Pain in left arm (principal); R79.89 Other specified abnormal findings of blood chemistry; M54.2 Cervicalgia
CPT/HCPCS: 36415; 71046-TC-FY; 80053; 84484; 85025; 85610; 93005; 93010; 99285-25; J0131

== ENCOUNTER 2024-04-04 00:13 | Emergency (ER) | payer OTHER ==
[2024-04-04 00:21] VITALS: TEMP 98.8; BMI 30.9
[2024-04-04] MEDS ORDERED: METOCLOPRAMIDE HCL INJECTION 10 MG/2 ML VIAL ONE (01:05)
[2024-04-04] MEDS ORDERED: IBUPROFEN 400 MG TABLET (FP) PO ONE (01:07)
[2024-04-04] MEDS: IBUPROFEN 400 MG TABLET (FP) PO ONE (01:08)
[2024-04-04] MEDS: METOCLOPRAMIDE HCL INJECTION 10 MG/2 ML VIAL IM ONE (01:10)
[2024-04-04 01:44] VITALS: BP 161/75; PULSE 77; RESP 18
== END 2024-04-04 02:28 | disposition home or self-care (01) ==
LOC: JER 00:13
PROC: 3E023GC Introduction of Other Therapeutic Substance into Muscle, Percutaneous Approach (ICD-10-PCS; principal; 2024-04-04)
DX: R05.9 Cough, unspecified (principal); Z20.822 Contact with and (suspected) exposure to COVID-19
CPT/HCPCS: 0241U-QW; 71045-TC-FY; 96372; 99284-25

== ENCOUNTER 2024-10-08 13:20 | Emergency (ER) | payer OTHER ==
[2024-10-08 13:29] VITALS: BP 114/54; PULSE 66; RESP 17; TEMP 98.1; BMI 29.6
[2024-10-08] MEDS ORDERED: ACETAMINOPHEN INJECTION 100 ML ONE (14:27)
[2024-10-08] MEDS: ACETAMINOPHEN 1000 MG/100 ML BAG IVPB ONE (14:39)
[2024-10-08] MEDS: SODIUM CHLORIDE 1,000 ML IV STA (14:39)
[2024-10-08 14:46] LABS: ABSOLUTE IMMATURE GRANULOCYTES 0.02 x10^3/uL (0.0-0.031); BASOPHILS # 0.01 x10^3/uL (0.01-0.08); EOSINOPHIL % 2.3 % (0.7-5.8); EOSINOPHILS # 0.12 x10^3/uL (0.04-0.36); MCHC 32.5 g/dl (32.2-35.5); MEAN PLT VOLUME 9.2 fl (9.4-12.3); MONOCYTE # 0.29 x10^3/uL (0.24-0.86); MONOCYTE % 5.5 % (4.7-12.5); PLATELET COUNT 294 x10^3/uL (182-369); RDW 14.5 % (12.4-16.4)
[2024-10-08 15:04] LABS: POTASSIUM 4.3 mmol/L (3.5-5.1)
[2024-10-08 15:06] LABS: CALCIUM 8.8 mg/dL (8.5-10.1)
[2024-10-08 15:07] LABS: ALBUMIN 3.6 g/dl (3.4-5.0); BLOOD UREA NITROGEN 18.5 mg/dL (7-18); MAGNESIUM 2.2 mg/dL (1.8-2.4)
[2024-10-08 15:10] LABS: CREATININE 0.8 mg/dL (0.55-1.3)
[2024-10-08 15:11] LABS: BILIRUBIN,TOTAL 0.6 mg/dL (0.2-1)
[2024-10-08 15:12] LABS: TOT PROT 6.7 g/dl (6.4-8.2)
[2024-10-08 15:59] LABS: HIV INTERPRETATION NEGATIVE (NEGATIVE)
[2024-10-08 16:00] LABS: HCV DIAGNOSTIC IN-HOUSE W/RFLX NON-REACTIVE (NONREACTIVE)
[2024-10-08 16:02] LABS: PH,URINE 5.5 (5.0-8.0); URINE APPEARANCE CLEAR; URINE BILIRUBIN NEGATIVE (NEGATIVE); URINE COLOR YELLOW; URINE GLUCOSE (UA) NEGATIVE (NEGATIVE); URINE KETONE NEGATIVE (NEGATIVE); URINE LEUK ESTERASE NEGATIVE (NEGATIVE); URINE NITRITE NEGATIVE (NEGATIVE); URINE PROTEIN NEGATIVE (NEGATIVE); URINE UROBILINOGEN 0.2 mg/dL (0.2-1.0)
[2024-10-08] MEDS ORDERED: AMOX TR/POT CLAV 875MG/125MG TABLETS (FP) ONE (16:57)
[2024-10-08] MEDS: AMOX TR/POT CLAV 875MG/125MG TABLETS (FP) PO ONE (17:06)
== END 2024-10-08 17:09 | disposition home or self-care (01) ==
LOC: JER 13:20
PROC: 3E033NZ Introduction of Analgesics, Hypnotics, Sedatives into Peripheral Vein, Percutaneous Approach (ICD-10-PCS; principal; 2024-10-08)
PROC: 3E0337Z Introduction of Electrolytic and Water Balance Substance into Peripheral Vein, Percutaneous Approach (ICD-10-PCS; 2024-10-08)
DX: K57.32 Diverticulitis of large intestine without perforation or abscess without bleeding (principal); R51.9 Headache, unspecified; R10.31 Right lower quadrant pain; R10.32 Left lower quadrant pain
CPT/HCPCS: 36415; 74177-TC; 80053; 81003; 83735; 85025; 86803; 87086; 87389; 93005; 93010; 96361; 96374; 99285-25; J0131; Q9967